=== PATIENT | female | born 1950 | race Caucasian/White ===

== ENCOUNTER → 2019-01-15 | Outpatient (CLI) | payer OTHER | LOC: CAT 07:40 | DX: Z13.6 Encounter for screening for cardiovascular disorders (principal); E78.00 Pure hypercholesterolemia, unspecified; I25.10 Atherosclerotic heart disease of native coronary artery without angina pectoris ==

== ENCOUNTER → 2020-01-10 | Outpatient (CLI) | payer OTHER | LOC: SJCVCIMAG 07:10 → SJCVC 07:22 → SJCVCIMAG 09:18 | PROVIDERS: ATTEND Internal Medicine Cardiovascular Disease | DX: R94.31 Abnormal electrocardiogram [ECG] [EKG] (principal); I08.8 Other rheumatic multiple valve diseases; R06.09 Other forms of dyspnea; E78.00 Pure hypercholesterolemia, unspecified; I10 Essential (primary) hypertension; R60.9 Edema, unspecified ==

== ENCOUNTER → 2020-06-02 | Outpatient (CLI) | payer OTHER | LOC: HYPER 11:52 | PROVIDERS: ATTEND Emergency Medicine | DX: R60.0 Localized edema (principal); L03.115 Cellulitis of right lower limb; L03.116 Cellulitis of left lower limb; D72.820 Lymphocytosis (symptomatic); I10 Essential (primary) hypertension; E78.5 Hyperlipidemia, unspecified; I83.90 Asymptomatic varicose veins of unspecified lower extremity; I73.9 Peripheral vascular disease, unspecified; M81.0 Age-related osteoporosis without current pathological fracture; E66.01 Morbid (severe) obesity due to excess calories; Z68.33 Body mass index [BMI] 33.0-33.9, adult ==

== ENCOUNTER → 2020-06-09 | Outpatient (CLI) | payer OTHER | LOC: HYPER 11:55 | PROVIDERS: ATTEND Emergency Medicine | DX: L03.115 Cellulitis of right lower limb (principal); L03.116 Cellulitis of left lower limb; R60.0 Localized edema; D72.820 Lymphocytosis (symptomatic); I10 Essential (primary) hypertension; E78.5 Hyperlipidemia, unspecified; I83.90 Asymptomatic varicose veins of unspecified lower extremity; E66.9 Obesity, unspecified; Z68.33 Body mass index [BMI] 33.0-33.9, adult ==

== ENCOUNTER → 2020-06-13 | Outpatient (CLI) | payer OTHER | LOC: SJCVCIMAG 11:24 | PROVIDERS: ATTEND Internal Medicine Cardiovascular Disease | DX: I87.2 Venous insufficiency (chronic) (peripheral) (principal); M79.89 Other specified soft tissue disorders ==

== ENCOUNTER → 2020-06-23 | Outpatient (CLI) | payer OTHER | LOC: HYPER 12:19 | PROVIDERS: ATTEND Emergency Medicine | DX: R60.0 Localized edema (principal); L03.115 Cellulitis of right lower limb; L03.116 Cellulitis of left lower limb; D72.820 Lymphocytosis (symptomatic); I10 Essential (primary) hypertension; E78.5 Hyperlipidemia, unspecified; E66.01 Morbid (severe) obesity due to excess calories; I83.90 Asymptomatic varicose veins of unspecified lower extremity; M81.0 Age-related osteoporosis without current pathological fracture; Z68.33 Body mass index [BMI] 33.0-33.9, adult ==

== ENCOUNTER → 2020-06-30 | Outpatient (CLI) | payer OTHER | LOC: SJCVC 15:20 | PROVIDERS: ATTEND Nuclear Medicine Nuclear Cardiology | DX: I87.2 Venous insufficiency (chronic) (peripheral) (principal); M79.89 Other specified soft tissue disorders; I12.9 Hypertensive chronic kidney disease with stage 1 through stage 4 chronic kidney disease, or unspecified chronic kidney disease; N18.9 Chronic kidney disease, unspecified; E78.5 Hyperlipidemia, unspecified; Z98.890 Other specified postprocedural states; Z88.8 Allergy status to other drugs, medicaments and biological substances; Z79.899 Other long term (current) drug therapy; Z82.49 Family history of ischemic heart disease and other diseases of the circulatory system ==

== ENCOUNTER → 2020-10-14 | Outpatient (CLI) | payer OTHER | LOC: SJCVC 13:31 | PROVIDERS: ATTEND Internal Medicine Cardiovascular Disease | DX: R94.31 Abnormal electrocardiogram [ECG] [EKG] (principal); R06.00 Dyspnea, unspecified; I10 Essential (primary) hypertension; R60.9 Edema, unspecified; E78.5 Hyperlipidemia, unspecified; E78.00 Pure hypercholesterolemia, unspecified; R06.02 Shortness of breath; Z79.899 Other long term (current) drug therapy; Z88.1 Allergy status to other antibiotic agents; Z88.8 Allergy status to other drugs, medicaments and biological substances; Z88.5 Allergy status to narcotic agent ==

== ENCOUNTER → 2020-10-29 | Outpatient (CLI) | payer OTHER | LOC: SJCVCIMAG 07:36 | PROVIDERS: ATTEND Internal Medicine Cardiovascular Disease | DX: I49.3 Ventricular premature depolarization (principal); R00.0 Tachycardia, unspecified; R06.09 Other forms of dyspnea; E78.5 Hyperlipidemia, unspecified; I10 Essential (primary) hypertension; R60.9 Edema, unspecified; Z88.1 Allergy status to other antibiotic agents; Z88.5 Allergy status to narcotic agent; Z79.899 Other long term (current) drug therapy; Z72.89 Other problems related to lifestyle ==

== ENCOUNTER → 2020-11-06 | Outpatient (CLI) | payer OTHER ==
[~2020-11-06] VITALS: Ht 165.1 cm; Wt 88.5 kg
[~2020-11-06] MED LIST: ALLEGRA ALLERG180 MG PO; DILTIAZEM ER180 M2 PO; HEARTBURN PREVE20 MG PO; LIPITOR 20 MG T20 M1 PO; PROAIR HFA8.5 GM INH; SPIRONOLACTONE25 MG PO; TOPROL XL50 MG PO; TORSEMIDE20 MG PO
[2020-11-06 08:35] VITALS: BP 151/87
[2020-11-06 08:45] LABS: CALCIUM 9.3 mg/dL (8.5-10.1); CREATININE 1.3 mg/dL (0.6-1.0); POTASSIUM 4.4 mmol/L (3.5-5.1)
--- NOTE | 2020-11-06 12:13 | CATHLAB ---
[facility] [place] [address] INVASIVE PROCEDURE REPORT Name: SHRAA WALLS Room #: REG MARIZOL PatelIlya#: [id number] Admission: 11/06/20 Attend Phys: David Medina MD Discharge: Date of : 54 Report #: [id number] THIS REPORT FOR: cc: Tanisha Barclay MD, Constance M. MD Park, Jin S. MD ~ APPROVED REPORT Study performed: 11/06/2020 10:26:40 Patient Details Patient Status: Out-Patient Room #: The patient is a 70 year-old female Event Personnel David Medina Ophthalmic Nurse, Luci Day RN RN, Uzair Armando RTR Scrub, Shara Mejia RTR, RUBBER [employer]TER Monitor Procedures Performed Art Access - R femoral artery* Left Heart Cath w/or w/o Coronaries [id number] [facility] [id number] Initial Mod Sed Same Phys/QHP Gr [id number] Mod Sed Same Phys/QHP Ea [id number] Hemostasis with Manual pressure Indication Dyspnea, Positive stress test, Chest pain Risk Factors HypercholesterolemiaPhysical Activity, Hypertension Procedure Narrative The Right Groin^ was infiltrated with 1% Lidocaine subcutaneous anesthesia. A PINNACLE 4FR Sheath #[id number] sheath was inserted into the RFA^. Coronary angiography was performed using coronary diagnostic catheters. The right coronary system was accessed and visualized with a JR4 catheter. The left coronary system was accessed and visualized with a JL4 catheter. The left ventricle was accessed and visualized with a JR4 catheter. Left ventricular/Aortic Valve gradient assessed via catheter pullback. Hemostasis was obtained with manual pressure following sheath removal without any complications. The patient tolerated the procedure well and there were no complications associated with the procedure. There was no hematoma. [facility] [address] [place] [address] INVASIVE PROCEDURE REPORT Name: TITISHARA Nelly Room #: REG [facility]#: [id number] Admission: 11/06/20 Attend Phys: David Medina MD Discharge: Date of : 54 Report #: [id number] Intraoperative Conscious Sedation Sedation start time: 1056 Case end Time: 1128 Fentanyl 50 mcg Versed 1 mg Fluoro Time: 7.80 minutes Dose: DAP 52834.10 cGycm2 1766 mGy Contrast Type and Amount: Visipaque 70 ml Coronary Angiography The patient's coronary anatomy is right dominant. Diagnostic Cath Left Main The left main artery is a large-caliber vessel, patent with no flow-limiting lesions. LAD The LAD is a moderate-sized caliber vessel, traverses the anterior wall and wraps around the apex. This vessel is patent with no flow-limiting lesions. Diagonal 1 This is a small to moderate-sized caliber vessel, patent with no flow-limiting lesions. Diagonal 2 This is a small to moderate-sized caliber vessel, patent with no flow-limiting lesions. 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 Nonselective injections reveal a patent vessel with no flow-limiting lesions. OM1 There is a moderate-sized caliber vessel, patent with no flow-limiting lesions. Right Coronary The RCA is a moderate to large caliber vessel, patent with no flow-limiting lesions. R PDA There is a moderate-sized caliber vessel, patent with no flow-limiting lesions. RPLV There is a moderate-sized caliber vessel, patent with no flow-limiting lesions. Left Ventriculography Left Ventriculography was not performed. Ejection Fraction was >55% based off patient's Nuclear Cardiac Stress Test. An LVEDP was measured and there is no gradient across the outflow tract. Hemodynamics The aortic pressure is 146/81 mmHg with a mean of 108 mmHg. The left ventricular pressure is 141/15 mmHg with a mean of mmHg. The left ventricular end diastolic pressure is 22 mmHg. Pullback from the left ventricle to the aorta revealed a mm gradient across the aortic valve. [facility] [address] [place] [address] INVASIVE PROCEDURE REPORT Name: SHARA WALLS Room #: REG [facility]#: [id number] Admission: 11/06/20 Attend Phys: David Medina MD Discharge: Date of : 54 Report #: [id number] Conclusion 1. Angiographically normal coronary arteries. 2. 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 3. Recommend risk factor management. <ELECTRONICALLY SIGNED> By: David Medina MD 11/06/201211 11 11 David Medina MD /INF
== END | disposition home or self-care (01) ==
LOC: CATH 07:46
PROVIDERS: ATTEND Internal Medicine Cardiovascular Disease
DX: R07.9 Chest pain, unspecified (principal); R94.39 Abnormal result of other cardiovascular function study; R06.00 Dyspnea, unspecified; I10 Essential (primary) hypertension; E78.00 Pure hypercholesterolemia, unspecified; Z98.890 Other specified postprocedural states; Z79.899 Other long term (current) drug therapy; Z82.49 Family history of ischemic heart disease and other diseases of the circulatory system; Z88.8 Allergy status to other drugs, medicaments and biological substances

== ENCOUNTER → 2020-11-20 | Outpatient (CLI) | payer OTHER | LOC: SJCVC 10:48 | PROVIDERS: ATTEND Internal Medicine Cardiovascular Disease | DX: N28.9 Disorder of kidney and ureter, unspecified (principal); I10 Essential (primary) hypertension; E78.5 Hyperlipidemia, unspecified; Z79.899 Other long term (current) drug therapy ==

== ENCOUNTER → 2020-12-10 | Outpatient (CLI) | payer OTHER | LOC: RAD 12:01 | PROVIDERS: ATTEND Internal Medicine Pulmonary Disease | DX: R06.02 Shortness of breath (principal) ==

== ENCOUNTER → 2021-06-01 | Outpatient (CLI) | payer OTHER | LOC: SJCVC 09:52 | PROVIDERS: ATTEND Internal Medicine Cardiovascular Disease | DX: R94.31 Abnormal electrocardiogram [ECG] [EKG] (principal); R06.00 Dyspnea, unspecified; E78.5 Hyperlipidemia, unspecified; I10 Essential (primary) hypertension; R60.9 Edema, unspecified; R00.0 Tachycardia, unspecified; Z88.8 Allergy status to other drugs, medicaments and biological substances; Z79.899 Other long term (current) drug therapy; Z98.890 Other specified postprocedural states ==